=== PATIENT | female | born 1965 | race Caucasian/White ===

== ENCOUNTER 2023-07-28 11:38 | Outpatient (CLI) | payer MEDICAID ==
[~2023-07-28 11:38] MED LIST: ESCI10TA PO; LORA1TAB PO
== END 2023-07-28 23:59 | disposition home or self-care (01) ==
LOC: RAD 11:38
PROVIDERS: ATTEND Family Medicine
DX: M48.07 Spinal stenosis, lumbosacral region (principal); M54.10 Radiculopathy, site unspecified; M43.16 Spondylolisthesis, lumbar region
CPT/HCPCS: 72110; 72220